=== PATIENT | male | born 1945 | race Caucasian/White ===

== ENCOUNTER 2016-04-10 06:31 | Outpatient (CLI) | payer MEDICARE, BC ==
[~2016-04-10] VITALS: Ht 175.3 cm; Wt 136.4 kg
--- NOTE | ~2016-04-10 | HEMODYNAMI ---
PATIENT:MARYJANE VELASQUEZ V MEDICAL RECORD: [id number] : 43 LOCATION:DVADIM ADMISSION DATE: 04/10/16 Generatedon:04/10/20169:36 Patient name: MARYJANE VELASQUEZ Patient #: [id number] SSN: : 1945 Date of study: 04/10/2016 Page: Of Hemodynamic Procedure Report Patient Data Patient Demographics Procedure consent was obtained First Name: MARYJANE Gender: Male Last Name: EVA : 1945 [facility] Initial: V Age: 71 year(s) Patient #: [id number] Race: Unknown Additional ID: [id number] Contact details [address]: [address] [place] [address] [place] State: [place] City: [place] Zip code: [address] Admission Admission Data Admission Date: 04/10/2016 Admission Time: 6:31 Arrival Date: 04/10/2016 Arrival Time: 8:30 Admit Source: Other Insurance Payor: Medicare Height (in.): 69 BSA: 2.45 (m2) Height (cm.): 175.26 BMI: 44.3 (kg/m2) Weight (lbs.): 300 Weight (kg.): 136.08 Lab Results Lab Result Date: 04/10/2016 Lab Result Time: 0:00 Biochemistry Name Units Result Min Max BUN mg/dl 19 --(----)*- 7 18 Creatinine mg/dl 0.6 --(*---)-- 0.6 1.3 CBC Name Units Result Min Max Hemoglobin g/dl 14 --(*---)-- 13.5 17.5 Procedure Procedure Types Cath Procedure Diagnostic Procedure LHC [facility] w/Coronaries Miscellaneous Procedures Moderate Sedation up to 30 minutes Procedure Description Procedure Date Procedure Date: 04/10/2016 Procedure Start Time: 9:19 Procedure End Time: 9:32 Procedure Staff Name Function Mark Rolon MD Performing Physician Staci Meyers RT Scrub Anson Bergman RN Nurse Nhi Salomon RT Monitor Procedure Data Cath Procedure Fluoroscopy Diagnostic fluoroscopy Total fluoroscopy Time: 2.5 time: 2.5 min min Diagnostic fluoroscopy Total fluoroscopy dose: 919 dose: 919 mGy mGy Contrast Material Contrast Material Type Amount (ml) Isovue 370 73 Entry Location Entry Primary Successful Side Size Upsize Upsize Entry Closure Gallegos ccessful Closure Location (Fr) 1 (Fr) 2 (Fr) Remarks Device Remarks Radial Right 6 Fr Mechanical artery Short Compression Estimated blood loss: 5 ml Diagnostic catheters Device Type Used For End Catheter Placement Cordis RBL-A catheter (NO Multi-vessel CHARGE) Angiography Procedure Complications No complications Procedure Medications Medication Administration Route Dosage Oxygen NC 2 l/min Benadryl I.V. 50 mg Lidocaine 2% added to field 20 Heparin Flush Bag added to field 2 bags (1000units/500ml NS) 0.9% NaCl I.V. 100 ml/hr Versed I.V. 1 mg Fentanyl I.V. 50 mcg Radial Cocktail I.A. 1 syringe (Verapomil 2mg/Nitro 400mcg/Heparin 1500units) Versed I.V. 1 mg Fentanyl I.V. 50 mcg Hemodynamics Rest BSA: 2.45 (m2) HGB: 14 (g/dl) O2 Consumption: Estimated: 276.04 (ml/min) O2 Cons umption indexed: Estimated:112.67 (ml/min/m) Heart Rate: 63 (bpm) Pressure Samples Time Site Value (mmHg) Purpose Heart Use Rate(bpm) 9:22 LV 135/3,22 Snapshot 71 9:22 AO 118/73(90) Pullback 69 9:22 LV 130/4,20 Pullback 69 Gradients Valve Time Site 1 Site 2 Mean SEP/DFP Peak To Heart Use (mmHg) (sec/min) Peak Rate (mmHg) (bpm) Aortic 9:22 LV AO 3 18 12 69 130/4,20 118/73(90) Calculations Valve P-P Mean Valve Index Valve Source Name Gradient Area Flow (cm2) Aortic 12 3 12 3 Snapshots Pre Cath Intra NCS Post Cath Vital Signs Time Heart Resp SPO2 NIBP (mmHg) Rhythm Pain Sedation Rate (ipm) (%) Status Level (bpm) 8:57:44 60 16 94 171/99(148) NSR 0 (11) 10(A) , No pain 9:02:14 58 15 96 181/104(148) NSR 0 (11) 10(A) , No pain 9:06:47 67 17 95 171/94(130) NSR 0 (11) 10(A) , No pain 9:11:17 65 16 92 167/95(115) NSR 0 (11) 10(A) , No pain 9:15:37 65 17 95 159/89(129) NSR 0 (11) 10(A) , No pain 9:20:02 63 16 94 162/93(132) NSR 0 (11) 9(A) , No pain 9:24:24 67 15 93 155/79(115) NSR 0 (11) 9(A) , No pain 9:28:50 66 16 96 142/81(105) NSR 0 (11) 10(A) , No pain Medications Time Medication Route Dose Verified Delivered Reason Notes E ffectiveness by by 8:55:34 Oxygen NC 2 l/min Mark Buffie used for Gonzales Bergman RN procedure 8:55:42 Benadryl I.V. 50 mg Mark Buffie used for from Gonzales Bergman RN procedure clh stock 8:57:45 Lidocaine 2% added 20ml Mark Mark for local to vial Gonzales Rolon MD anesthetic field 8:57:49 Heparin Flush added 2 bags Mark Mark used for Bag to Gonzales Rolon MD procedure (1000units/500ml field NS) 8:58:00 0.9% NaCl I.V. 100 Mark Buffie Per ml/hr Gonzales Bergman RN physician 9:17:24 Versed I.V. 1 mg Mark Buffie for sedation Gonzales Bergman RN 9:17:31 Fentanyl I.V. 50 mcg Mark Buffie for sedation Gonzales Bergman RN 9:21:11 Radial Cocktail I.A. 1 Mark Buffie for (Verapomil syringe Gonzales Bergman RN vasodilation 2mg/Nitro 400mcg/Heparin 1500units) 9:21:16 Versed I.V. 1 mg Mark Buffie for sedation Gonzales Bergman RN 9:21:20 Fentanyl I.V. 50 mcg Mark Buffie for sedation Gonzales Bergman RN Procedure Log Time Note 8:33:08 Staci Counts RT(R) sent for patient. Start room use. 8:33:09 Time tracking: Regular hours 8:33:13 Plan of Care:Hemodynamics will remain stable., Cardiac rhythm will remain stable., Comfort level will be maintained., Respiratory function will remain adequate., Patient/ family verbilizes understanding of procedure., Procedure tolerated without complication., Recovers from procedure without complications.. 8:38:13 Diagnostic Cath Status : Elective 8:38:50 Admit Source: Other 8:38:53 Patient Height : 175.26 inches 8:38:57 Patient Weight : 136.08 lbs 8:39:05 Arrival Date: 04/10/2016 8:30:00 AM 8:39:11 Insurance Payor : Medicare 8:41:25 Lab Result : BUN 19 mg/dl 8:41:25 Lab Result : Hemoglobin 14 g/dl 8:41:25 Lab Result : Creatinine 0.6 mg/dl 8:47:26 Patient received from Pre/Post Procedure Room to [facility] 2 Alert and oriented. Tansferred to table in Supine position. 8:47:27 Warm blankets applied, and rachelle hugger turned on for patient comfort. 8:47:28 Correct patient and procedure confirmed by team. 8:47:29 Signed procedure consent form obtained from patient. 8:47:30 ECG and BP/O2 sat monitors applied to patient. 8:55:34 Oxygen 2 l/min NC was given by Anson Bergman RN; used for procedure; 8:55:42 Benadryl 50 mg I.V. was given by Anson Bergman RN; used for procedure; from [facility] 8:56:31 Vital chart was started 8:56:32 Baseline sample Acquired. 8:56:35 Rhythm: sinus rhythm 8:56:37 Full Disclosure recording started 8:56:54 H&P Date Dictated: 03/25/2016 Within 30 days and on chart., H&P Addendum completed by physician on day of procedure. (MUST COMPLETE FOR ALL OUTPATIENTS). 8:56:55 Pre-procedure instructions explained to patient. 8:56:56 Pre-op teaching completed and patient verbalized understanding. 8:56:57 Family in waiting room. 8:57:00 Patient NPO since Midnight. 8:57:45 Lidocaine 2% 20ml vial added to field was given by Mark Rolon MD; for local anesthetic; 8:57:49 Heparin Flush Bag (1000units/500ml NS) 2 bags added to field was given by Mark Rolon MD; used for procedure; 8:58:00 0.9% NaCl 100 ml/hr I.V. was given by Anson Bergman RN; Per physician; 8:58:43 Is the patient allergic to Iodine/contrast media? No. 8:58:44 Was the patient premedicated? No 8:58:50 Is patient on blood thinner?No 8:58:54 Patient diabetic? No. 8:58:57 Previous problem with sedation/anesthesia? No ? 8:58:59 Snore? Yes 8:59:00 Sleep apnea? Yes 8:59:00 Deviated septum? No 8:59:01 Opens mouth fully? Yes 8:59:02 Sticks out tongue? Yes 8:59:06 Airway obstruction? No ? 8:59:10 Dentures? No ? 8:59:13 Pre procedure: right dorsailis pedis pulse 1+ Palpable, but thready & weak; easily obliterated 8:59:15 Patient pain scale 0/10 ?. 8:59:21 IV patent on arrival in left forearm with 0.9% NaCl at [facility]. 8:59:35 Lab results completed and on chart. 8:59:39 Right Radial & Right Groin area was prepped with chlora-prep and draped in sterile fashion 8:59:39 Alarms reviewed by R. N. 8:59:40 Sharps counted by scrub and verified by R.N. 9:00:30 Physician arrived 9:00:30 --------ALL STOP TIME OUT------ 9:00:31 Final Timeout: patient, procedure, and site verified with staff and physician. All members of the team are in agreement. 9:00:32 Right Radial & Right Groin site verified by team. 9:00:35 Physical assessment completed. ASA score P 2 - A patient with mild systemic disease as per Mark Rolon MD. 9:00:39 Sedation plan: IV Moderate Sedation Versed, Fentanyl 9:00:42 Use device set Radial Dx 9:00:43 Acist Syringe opened to sterile field. 9:00:44 Medline Cath Pack opened to sterile field. 9:00:44 Bag Decanter opened to sterile field. 9:00:44 Terumo 6Fr Slender Glidesheath opened to sterile field. 9:00:45 St Lucio 260cm J .035 wire opened to sterile field. 9:00:45 Acist Hand Control opened to sterile field. 9:00:45 Acist Manifold opened to sterile field. 9:00:46 Tegaderm 4 x 4 opened to sterile field. 9:04:43 Zero performed for pressure channel P1 9:17:24 Versed 1 mg I.V. was given by Anson Bergman RN; for sedation; 9:17:31 Fentanyl 50 mcg I.V. was given by Anson Bergman RN; for sedation; 9:18:55 Procedure started. 9:19:03 Local anesthetic to right radial artery with Lidocaine 2% by Mark Rolon MD.INITIAL ACCESS ONLY 9:20:33 A 6 Fr Short sheath was inserted into the Right Radial artery 9:21:11 Radial Cocktail (Verapomil 2mg/Nitro 400mcg/Heparin 1500units) 1 syringe I.A. was given by Anson Bergman RN; for vasodilation; 9:21:16 Versed 1 mg I.V. was given by Anson Bergman RN; for sedation; 9:21:18 A [employer] Solutions RBL-A catheter (NO CHARGE) was advanced over the wire and used for Multi-vessel Angiography. 9:21:20 Fentanyl 50 mcg I.V. was given by Anson Bergman RN; for sedation; 9:22:11 LV hemodynamics recorded. 9:22:12 LV gram done using ORTA 9:22:20 Injector settings: Ml/sec: 5, Volume: 15, 9:22:35 EF : 40 % 9:23:47 LCA angiography performed. 9:23:50 Injector settings: Ml/sec: 3, Volume: 6, 9:25:21 RCA angiography performed. 9:25:52 Injector settings: Ml/sec: 3, Volume: 6, 9:29:56 Catheter removed. 9:30:03 Terumo TR Band Large opened to sterile field. 9:30:22 Sheath removed intact; hemostasis achieved with Mechanical Compression to the Right Radial artery. 9:30:24 Procedure ended.(Physican Out) 9:30:57 Fluoroscopy time 02.50 minutes. 9:31:05 Flurop Dose total: 919 9:31:05 Fluoroscopy dose: 919 mGy 9:31:08 Contrast amount:Isovue 370 73ml. 9:31:10 Sharps counted by scrub and verified by R.N. 9:31:13 TR band inflated with 11cc of air. 9:31:22 Insertion/operative site no bleeding no hematoma. 9:31:26 Post right radial artery:stable 9:31:28 Post Procedure Pulses reassessed and unchanged 9:31:30 Post procedure rhythm: unchanged. 9:31:33 Estimated blood loss: 5 ml 9:31:35 Post procedure instruction explained to patient.Patient verbalizes understanding. 9:31:35 Patient needs reinforcement of post procedure teaching. 9:31:41 Procedure and supply charges have been captured, reviewed, submitted and are correct. 9:31:49 Procedure type changed to Cath procedure, Diagnostic procedure, LHC, LHC w/Coronaries, Miscellaneous Procedures, Moderate Sedation up to 30 minutes 9:31:54 Procedure Complication : No complications 9:32:02 Vital chart was stopped 9:32:03 See physician's report for complete and final results. 9:32:05 Report given to Pre/Post Procedure Room. 9:32:08 Patient transfered to Pre/Post Procedure Room with Stretcher. 9:32:10 Procedure ended. 9:32:10 Full Disclosure recording stopped 9:32:43 End room use (Document Last) Device Usage Item Name Manufacture Quantity Catalog Hospital Part Current Minimal Lot# / Number Charge Number Stock Stock Serial# Code Acist Acist 1 70051 049941 949510 423468 20 Syringe Medical Systems Inc Medline Cardinal 1 [id number] [id number] 17921 879500 5 Cath Pack Health Bag Microtek 1 [id number] 56158 042110 5 Decanter Medical Inc. Terumo 6Fr Terumo 1 [id number] 176250 200611 502592 [address] [facility] 1 992556 973571 947293 441569 30 260cm J .035 wire Acist Hand Acist 1 33542 595823 634932 758463 5 Control Medical Systems Inc Acist Acist 1 41362 392677 786785 769095 5 Manifold Medical Systems Inc Tegaderm 4 3M 1 1626W 588945 270457 390957 5 x 4 Cordis Cardinal 1 [id number] 507097 5 RBL-A Health catheter (NO CHARGE) Terumo TR Terumo 1 [id number] 970101 263946 40 Band Large Signature Audit [place] Stage Time Signature Unsigned Intra-Procedure 04/10/2016 Nhi Salomon 9:36:06 AM RT(R) Signatures Monitor : Nhi Salomon RT Signature : Date : Time : [place] [id number] [place] [id number]
[~2016-04-10 06:31] MED LIST: BAYER CHEWABLE81 MG PO; CARAFATE1 G PO; CARDURA2 MG PO; FENOFIBRATE134 MG PO; FISH OIL 1,2001 CAP PO; FLECAINIDE ACET50 MG PO; GLUCOSAMINE HC500 MG PO; JANUVIA50 MG PO; KLOR-CON 1010 MEQ PO; NIASPAN750 MG PO; ZEBETA5 MG PO
[2016-04-10] MEDS ORDERED: NIASPAN750 MG PO (06:58)
[2016-04-10] MEDS ORDERED: CARDURA2 MG PO (07:01)
[2016-04-10] MEDS ORDERED: PRAVACHOL40 MG PO (07:02)
[2016-04-10] MEDS ORDERED: PROTONIX40 MG PO (07:03)
[2016-04-10] MEDS ORDERED: BAYER CHEWABLE81 MG PO (07:03)
[2016-04-10] MEDS ORDERED: GLUCOSAMINE & C1 CAP PO (07:04)
[2016-04-10] MEDS ORDERED: OMEGA 3 FISH OI1 CAP PO (07:04)
[2016-04-10 07:06] VITALS: BP 144/70; Ht 175.3 cm; Wt 136.4 kg
[2016-04-10 07:11] LABS: BASOPHILS 0.5 % (0.0-2.0); EOSINOPHILS 3.2 % (0-7); HEMATOCRIT 42.6 % (42.0-54.0); IMMATURE GRANULOCYTES 0.5 % (0-5); LYMPHOCYTES 23.7 % (15-50); MCH 29.8 pg (26.0-34.0); MCHC 32.9 g/dL (31.0-37.0); MCV 90.6 fL (80.0-100.0); MEAN PLATELET VOLUME 11.7 fL (7.4-10.4); MONOCYTES 10.3 % (2-11); NEUTROPHILS 61.8 % (40-80); PLATELET COUNT 131 10x3/uL (130-400); RDW 14.1 % (11.5-14.5); WBC 4.4 10x3/uL (4.8-10.8)
[2016-04-10 07:28] LABS: CALC OSMOLALITY 288 mosm/kg (275-300); CALCIUM 9.4 mg/dL (8.5-10.1); CARBON DIOXIDE 30.7 mmol/L (21.0-32.0); CHLORIDE - SERUM 106 mmol/L (98-107); CREATININE - SERUM 0.6 mg/dL (0.6-1.3); GLUCOSE 141 mg/dL (74-106); SODIUM 143 mmol/L (136-145); UREA NITROGEN 19 mg/dL (7-18); eGFR NON AFRICAN AMERICAN > 90 mL/min (90-120)
--- NOTE | 2016-04-10 10:03 | NUR ---
TR BAND TO R/WRIST CDI NO BLEEDING NO HEMATOMA NOTED. VSS WITH CHEST PAIN DENIED. INSTRUCTED PATIENT TO KEEP RUE STRAIGHT NO BENDING OR FLEXING OF WRIST. FAMILY AT SIDE
--- NOTE | 2016-04-10 10:30 | NUR ---
1030 PATIENT VOIDS 400 CC CLEAR YELLOW URINE TO COLLECTION
--- NOTE | 2016-04-10 11:00 | NUR ---
1100 REPOSITIONED TO SITTING WITH HOB UP 45 DEGREES WITH CHEST PAIN DENIED VSS 2 CC AIR REMOVED FROM TR BAND WITH NO BLEEDING NO HEMATOMA NOTED. SANDWICH AND DRINK TO BEDSIDE
--- NOTE | 2016-04-10 11:33 | NUR ---
PIV REMOVED FROM LEFT ARM WITH DRESSING APPLIED 2 CC AIR REMOVED FROM TR BAND WITH NO BLEEDING NO HEMATOMA NOTED. PATIENT UP TO BEDSIDE TO GET DRESSED FOR DISCHARGE
--- NOTE | 2016-04-10 11:49 | NUR ---
TR BAND REMOVED WITH NO BLEEDING NO HEMATOMA NOTED. DRESSING APPLIED. DISCHARGE INSTRUCTIONS GONE OVER WITH PATIENT AND FAMILY LEFT VIA WC FOR FAMILY TO DRIVE HOME CHEST PAIN DENIED
--- NOTE | 2016-04-29 08:17 | OP ---
PATIENT NAME: MARYJANE VELASQUEZ V MEDICAL RECORD: [id number] :43 LOCATION:D.CAT ADMISSION DATE: SURGEON: TUAN JACKSON M.D. DATE OF OPERATION: 04/10/2016 REFERRING PHYSICIAN: Dr. Tuan Jennings. PROCEDURES PERFORMED: 1. Selective coronary angiography. 2. Left heart catheterization with ventriculogram. INDICATION: A 71-year-old gentleman presents with symptoms of dyspnea and abnormal stress test revealing inferior ischemia. EQUIPMENT USED: A 5-Sammarinese Victorino catheter. TECHNIQUE: A 6-Sammarinese sheath was inserted in retrograde fashion in the right radial artery. Next, selective coronary angiography was performed in standard 5-Sammarinese Victorino catheter. Left heart catheterization was performed using the Victorino catheter as well. CORONARY ANATOMY: 1. Left main: Left main trunk is moderate in caliber. It gives rise to the LAD and circumflex. It has no obstruction. 2. LAD: This is a large caliber vessel extending to the apex. The proximal vessel has mild irregularities, but nothing worse than 20%. 3. Circumflex: This vessel is moderate in caliber. It has a high lateral branch proximal segment. The continuation of the circumflex has a smooth 40% stenosis. 4. Right coronary: This vessel is large in caliber and dominant. The vessel is mildly calcified. There are mild irregularities throughout the vessel, but nothing worse than 30%. 5. Left ventricle: Left ventricle is normal in size. There is mild LV dysfunction noted. Estimated ejection is in the order of 45%. IMPRESSION: 1. Mild coronary artery disease. 2. Mild left ventricular dysfunction. PLAN: At this point, we will continue with medical management. TRANSINT:[id number] Voice Confirmation ID: [id number] DOCUMENT ID: [id number] TUAN JACKSON M.D. at 0817 CC: [id number] DICTATION DATE: 04/10/16 0935 EMERGENCY DOCTOR: 04/10/16 1729 DEP CLI 04/10/16 [place] [id number] [place] [address]
== END 2016-04-10 11:51 | disposition home or self-care (01) ==
LOC: D.CATH 06:31
PROVIDERS: Internal Medicine Cardiovascular Disease
DX: I25.10 Atherosclerotic heart disease of native coronary artery without angina pectoris (principal); I51.9 Heart disease, unspecified

== ENCOUNTER → 2016-05-26 07:35 | Outpatient (CLI) | payer MEDICARE, BC ==
[2016-04-10 07:06] VITALS: BMI 44.4
[~2016-05-26 07:35] MED LIST changes: +GLUCOSAMINE & C1 CAP PO; +OMEGA 3 FISH OI1 CAP PO; +PRAVACHOL40 MG PO; +PROTONIX40 MG PO
== END | disposition home or self-care (01) ==
LOC: D.NM 07:35
DX: K21.9 Gastro-esophageal reflux disease without esophagitis (principal)

== ENCOUNTER → 2016-10-08 13:19 | Outpatient (CLI) | payer MEDICARE, BC ==
[2016-04-10 07:06] VITALS: BMI 44.4
== END | disposition home or self-care (01) ==
LOC: D.CT 13:19
DX: K42.9 Umbilical hernia without obstruction or gangrene (principal)

== ENCOUNTER 2016-12-12 11:32 | Emergency (ER) | payer MEDICARE, BC ==
[2016-04-10 07:06] VITALS: BMI 44.4
== END 2016-12-12 16:30 | disposition home or self-care (01) ==
LOC: D.ER 11:32
DX: S61.412A Laceration without foreign body of left hand, initial encounter (principal); W29.8XXA Contact with other powered hand tools and household machinery, initial encounter; Y93.89 Activity, other specified; Y92.029 Unspecified place in mobile home as the place of occurrence of the external cause

== ENCOUNTER → 2017-07-30 07:38 | Outpatient (CLI) | payer MEDICARE, BC ==
[2016-04-10 07:06] VITALS: BMI 44.4
== END | disposition home or self-care (01) ==
LOC: D.RAD 07:38
DX: K21.9 Gastro-esophageal reflux disease without esophagitis (principal)

== ENCOUNTER 2017-09-01 11:18 | Outpatient (CLI) | payer MEDICARE, BC ==
[2016-04-10 07:06] VITALS: BMI 44.4
== END 2017-09-01 13:10 ==
LOC: D.OPS 11:18
DX: E11.43 Type 2 diabetes mellitus with diabetic autonomic (poly)neuropathy (principal); Z01.812 Encounter for preprocedural laboratory examination

== ENCOUNTER → 2018-03-16 13:18 | Outpatient (CLI) | payer MEDICARE, BC ==
[2016-04-10 07:06] VITALS: BMI 44.4
[~2018-03-16 13:18] MED LIST changes: +ASACOL HD800 MG PO; +Delzicol PO; +FLAGYL500 MG PO; +FUROSEMIDE20 MG PO; +GLUCOTROL XL 5 M5 MG PO; +LEVOFLOXACIN500 MG PO; +METFORMIN HCL500 M1 PO; +SYNTHROID25 MCG PO
== END | disposition home or self-care (01) ==
LOC: D.LAB 12:43
DX: R19.7 Diarrhea, unspecified (principal)

== ENCOUNTER 2018-03-18 10:39 | Inpatient (IN) | payer MEDICARE, BC ==
[~2018-03-18] VITALS: Ht 175.3 cm; Wt 129.3 kg
[~2018-03-18 10:39] MED LIST changes: -ASACOL HD800 MG PO; -Delzicol PO; -FLAGYL500 MG PO; -FUROSEMIDE20 MG PO; -GLUCOTROL XL 5 M5 MG PO; -LEVOFLOXACIN500 MG PO; -METFORMIN HCL500 M1 PO; -SYNTHROID25 MCG PO
[2018-03-18 11:52] LABS: ALBUMIN 1.6 g/dL (3.4-5.0); ALKALINE PHOSPHATASE 37 U/L (46-116); ALT (SGPT) 20 U/L (10-68); CALC OSMOLALITY 273 mosm/kg (275-300); CALCIUM 7.7 mg/dL (8.5-10.1); CARBON DIOXIDE 25.8 mmol/L (21.0-32.0); CHLORIDE - SERUM 98 mmol/L (98-107); CREATININE - SERUM 0.7 mg/dL (0.6-1.3); PROTEIN - SERUM 5.4 g/dL (6.4-8.2); SODIUM 134 mmol/L (136-145); UREA NITROGEN 11 mg/dL (7-18); eGFR NON AFRICAN AMERICAN > 90 mL/min (90-120)
[2018-03-18 11:57] LABS: GLUCOSE 228 mg/dL (74-106)
[2018-03-18 12:02] LABS: HEMATOCRIT 31.7 % (42.0-54.0); HEMOGLOBIN 10.6 g/dL (13.5-17.5); LYMPHOCYTES 6.6 % (15-50); MCH 27.3 pg (26.0-34.0); MCHC 33.4 g/dL (31.0-37.0); MCV 81.7 fL (80.0-100.0); MEAN PLATELET VOLUME 8.9 fL (7.4-10.4); NEUTROPHILS 84.9 % (40-80); RBC 3.88 10x6/uL (4.20-6.10); RDW 13.2 % (11.5-14.5); WBC 7.1 10x3/uL (4.8-10.8)
[2018-03-18 12:03] LABS: PLATELET COUNT 223 10x3/uL (130-400)
[2018-03-18 12:08] VITALS: BP 145/66
[2018-03-18 14:57] VITALS: BP 145/66; BMI 41.6
[2018-03-18 15:08] LABS: APPEARANCE CLEAR (CLEAR); COLOR YELLOW (YELLOW)
[2018-03-18 15:09] LABS: BILIRUBIN NEGATIVE (NEGATIVE); GLUCOSE 100 mg/dL (NEGATIVE); KETONE NEGATIVE (NEGATIVE); NITRITE NEGATIVE (NEGATIVE); PROTEIN NEGATIVE (NEGATIVE); SPECIFIC GRAVITY 1.015 (1.005-1.020); UROBILINOGEN NORMAL (NORMAL)
[2018-03-18 16:07] VITALS: BP 130/62
[2018-03-18 20:00] VITALS: BP 133/52
[2018-03-19 00:10] VITALS: BP 116/57
[2018-03-19 03:58] VITALS: BP 111/51
[2018-03-19 06:34] LABS: BASOPHILS 0.2 % (0-2); HEMATOCRIT 31.5 % (42.0-54.0); HEMOGLOBIN 10.1 g/dL (13.5-17.5); LYMPHOCYTES 12.3 % (15-50); MCH 26.4 pg (26.0-34.0); MCHC 32.1 g/dL (31.0-37.0); MCV 82.5 fL (80.0-100.0); MEAN PLATELET VOLUME 9.2 fL (7.4-10.4); MONOCYTES 7.9 % (2-11); NEUTROPHILS 77.6 % (40-80); PLATELET COUNT 211 10x3/uL (130-400); RBC 3.82 10x6/uL (4.20-6.10)
[2018-03-19 06:49] LABS: CALCIUM 7.6 mg/dL (8.5-10.1); CARBON DIOXIDE 26.5 mmol/L (21.0-32.0); CHLORIDE - SERUM 106 mmol/L (98-107); POTASSIUM - SERUM 3.6 mmol/L (3.5-5.1); SODIUM 141 mmol/L (136-145)
[2018-03-19 06:58] LABS: WBC 4.8 10x3/uL (4.8-10.8)
[2018-03-19 07:22] LABS: CALC OSMOLALITY 278 mosm/kg (275-300); CREATININE - SERUM 0.5 mg/dL (0.6-1.3); GLUCOSE 95 mg/dL (74-106); UREA NITROGEN 7 mg/dL (7-18); eGFR NON AFRICAN AMERICAN > 90 mL/min (90-120)
[2018-03-19 08:23] VITALS: BP 121/59
[2018-03-19 10:41] VITALS: Ht 175.3 cm; Wt 129.3 kg
[2018-03-19 13:17] VITALS: BP 119/62
--- NOTE | 2018-03-19 13:56 | HP ---
PATIENT: MARYJANE VELASQUEZ V MEDICAL RECORD: [id number] ACCOUNT: [id number] LOCATION:[address] : 43 ADMISSION DATE: 03/18/18 PCP: CATHI MARVIN MD HISTORY AND PHYSICAL EXAMINATION REASON FOR ADMISSION: Intractable diarrhea. HISTORY OF PRESENT ILLNESS: The patient is a 73-year-old male, type 2 diabetic, who is post-cholecystectomy several years ago. He said he has never had dumping syndrome, but about a month ago, began having some loose stools. He went on a [place] cruise, and after that, it seemed to be more prominent. He would have 6-8 stools a day. Over the last 2 weeks, it has increased to 10-14 stools per day. He has had some mild abdominal cramping. He presented to the office with this about 2 weeks ago. We stopped metformin and his PPI to see if that would improve him at all. We also scheduled him for outpatient stool studies. He has been taking Gatorade, but said he has not improved; and in the last 2 days, he has had 14 stools a day. There has been no blood in the stool or fever. He has had about a 15-pound weight loss over the last month. Stool studies outpatient did show fecal leukocytes positive, culture negative thus far, C. diff negative, and O&P negative. He called this morning saying he just could not keep up with fluid, is now being admitted for evaluation of his diarrhea, IV fluid, and replacement of his low potassium. PAST MEDICAL HISTORY: Type 2 diabetes mellitus, history of gout, morbid obesity, hyperlipidemia, hypertension, osteoarthritis, prostatitis, GERD, and rosacea. He had cardiac cath in 2017 that showed 30% to 40% minimal stenosis in the circumflex and right coronary artery, treated medically by Dr. Rolon. Also history of diverticulosis per colonoscopy. History of gastroparesis, thought due to diabetes, followed by Dr. ESTELA Galvan. History of paroxysmal atrial fibrillation. PAST SURGICAL HISTORY: Appendectomy and cholecystectomy. He had a Proscan prostate laser surgery. Rotator cuff repair. SOCIAL HISTORY: . Remote smoker. Nondrinker. FAMILY HISTORY: Parents are . Mother had malignant tumor of the lung. Father had malignant tumor of the testicle. One brother with esophageal cancer and sister with lung malignancy. HOME MEDICATIONS: Recently stopped Glucotrol, metformin, and pantoprazole due to diarrhea. Zebeta 5 mg a day, Cardura 2 mg at night, fenofibrate 124 mg p.o. daily, fish oil one t.i.d., Tambocor 50 mg p.o. b.i.d., niacin ER 750 mg at bedtime, pravastatin 40 mg daily, aspirin 81 mg daily, Carafate 1 gram p.o. t.i.d., pantoprazole 40 mg p.o. daily, and glucosamine/chondroitin one cap p.o. b.i.d. REVIEW OF SYSTEMS: GENERAL: Fatigued. He has mentioned 15-pound weight loss. No fever. HEENT: No recent visual change, sinus congestion, or sore throat. RESPIRATORY: No severe cough. CARDIAC: No exertional chest pain or claudication. He has chronic peripheral edema in his lower extremities, not worse than previous. Denies palpitations. ENDOCRINE: Denies polyuria, polydipsia, heat or cold intolerance. HISTORY AND PHYSICAL [id number] MARYJANE VELASQUEZ V NEUROLOGIC: No history of stroke, TIA, vascular headaches, or seizures. PSYCHIATRIC: Denies depressed mood. GENITOURINARY: Nocturia once to twice nightly. GASTROINTESTINAL: He has had multiple loose small volume stools for the last month, worse over the last 48 hours with 14 stools per day. No melena or bright red blood per rectum. He does have some rectal tenderness. PHYSICAL EXAMINATION: VITAL SIGNS: His temperature is 97.9, pulse 78 and regular, respirations are 20, and blood pressure is 148/66 with sat of 93% on room air. GENERAL: The patient is alert and oriented. HEENT: Eyes are clear. Oropharynx unremarkable. NECK: Supple without bruits or masses. CHEST: Clear with distant breath sounds. HEART: Regular rate and rhythm without murmur. ABDOMEN: Morbidly obese. Soft. Healed surgical scar noted in midline. He is somewhat hypertympanic with hyperactive bowel sounds. Minimally tender in the suprapubic area bilaterally. RECTAL: Deferred due to hemorrhoid issues. EXTREMITIES: 2+ bitibial and pretibial edema. Homans sign is negative. He is oriented to person, place, and time. Cranial nerves are grossly intact. Gait normal. INTEGUMENT: He has facial rosacea rash. Otherwise, no open lesions are noted. LABORATORY DATA: White count 7000 with left shift, H&H is 10.6 and 31.7 respectively. Chemistry reveals sodium 134, potassium 3.0, and blood sugar is 228. Liver functions are normal. Urinalysis is pending. DIAGNOSTIC DATA: Abdominal series is pending. Outpatient stool shows fecal leukocytes positive. Negative O&P. Negative C. diff. ASSESSMENT: 1. Diarrhea, severe, with fecal leukocyte positive. 2. Recent foreign travel. 3. Hypokalemia due to GI losses. 4. History of atrial fibrillation. 5. Minimal CAD in circumflex and RCA. 6. Hypertension. 7. Obesity. 8. AODM. PLAN: Continue to hold metformin and pantoprazole. Due to fecal leukocytes, we will await on cultures to return, but we will place on IV Levaquin and Flagyl, potassium replacement. Further workup pending clinical course, which has been discussed with the patient and his . TRANSINT:[id number] Voice Confirmation ID: [id number] DOCUMENT ID: [id number] HISTORY AND PHYSICAL [id number] MARYJANE VELASQUEZ TIMOTHY MD at 1356 CC: [id number] DICTATION DATE: 03/18/18 1326 EMPLOYMENT LAW ATTORNEY: 03/18/18 1507 ADM IN [place] [id number] [place] [id number]
--- NOTE | 2018-03-19 14:44 | MORECARE ---
CASE MANAGEMENT DISCHARGE SUMMARY PATIENT: MARYJANE VELASQUEZ V UNIT: [id number] ADM DATE: 03/18/18 AGE: 73 : 43 SEX: M ROOM/BED: D.1208 AUTHOR: ROCKY WIGGINS PHYSICIAN: REFERRING PHYSICIAN: CATHI MARVIN MD DATE OF SERVICE: 03/19/18 Discharge Plan Patient Name: MARYJANE VELASQUEZ [facility] [facility] 1945 Planned Disposition: Anticipated Discharge Date: Discharge Date: Expected LOS: Initial Reviewer: [email or web address] Initial Review Date: 03/19/2018 Generated: 03/19/18 3:43 pm Patient Name: MARYJANE VELASQUEZ Page [phone] at 1444 All edits/amendments must be made on the electronic document DICTATION DATE: 03/19/18 1443 INDUSTRIAL STAFF NURSE: CAROLYN 03/19/18 1443 RPT#: [id number] DC DATE: STATUS: ADM IN [facility] [address] [place] [address] END OF REPORT
--- NOTE | 2018-03-19 14:54 | MORECARE ---
CASE MANAGEMENT DISCHARGE SUMMARY PATIENT: MARYJANE VELASQUEZ V UNIT: [id number] ADM DATE: 03/18/18 AGE: 73 : 43 SEX: M ROOM/BED: D.1208 AUTHOR: ROCKY WIGGINS PHYSICIAN: REFERRING PHYSICIAN: CATHI MARVIN MD DATE OF SERVICE: 03/19/18 Discharge Plan Patient Name: MARYJANE VELASQUEZ Facility: [facility]:[place] : 1945 Planned Disposition: Anticipated Discharge Date: Discharge Date: Expected LOS: Initial Reviewer: [email or web address] Initial Review Date: 03/19/2018 Generated: 03/19/18 3:54 pm Comments DCP- Discharge Planning Updated by [email or web address]: Dia Valdez on 03/19/18 1:[address] Patient Name: MARYJANE VELASQUEZ Admission Status: Elective Accout number: [id number] Admission Date: 03-18-2018 : 1945 Admission Diagnosis: Attending: CATHI MARVIN Current LOS: 1 Anticipated DC Date: Planned Disposition: Primary Insurance: MEDICARE A & B Discharge Planning Comments: CM MET WITH PATIENT ABOUT DC PLANNING/NEEDS. PLANS TO DC TO HOME WITH . DENIES NEEDS AT THIS TIME. CM WILL FOLLOW AND ASSIST NEEDED WITH DC PLANNING/NEEDS. Supervisor Warping Department: Dia Valdez DCPIA - Discharge Planning Initial Assessment Updated by [email or web address]: Dia Valdez on 03/19/18 2:45 pm * Is the patient Alert and Oriented? Yes * PCP * Pharmacy [facility] * Preadmission Environment Home with Family * ADLs Independent * Equipment CPAP * List name and contact numbers for known caregivers / representatives who currently or will assist patient after discharge: CARRILLO RUGGIERO, * Community resources currently utilized None * Additional services required to return to the preadmission environment? No * Can the patient safely return to the preadmission environment? Yes * Has this patient been hospitalized within the prior 30 days at any hospital? No Last DP export: 03/19/18 1:43 pm Patient Name: MARYJANE VELASQUEZ Page [phone] at 1454 All edits/amendments must be made on the electronic document DICTATION DATE: 03/19/181453 AIRCRAFT MAINTENANCE DIRECTOR: CAROLYN 03/19/181453 RPT#: [id number] DC DATE: STATUS: ADM IN [facility] [address] [place] [address] END OF REPORT
[2018-03-19 16:54] VITALS: BP 100/41
[2018-03-19 20:10] VITALS: BP 142/52
[2018-03-20 00:54] VITALS: BP 151/60
[2018-03-20 05:03] VITALS: BP 122/53
[2018-03-20 06:48] LABS: BASOPHILS 0.2 % (0-2); EOSINOPHILS 0.5 % (0-7); HEMATOCRIT 32.1 % (42.0-54.0); HEMOGLOBIN 10.2 g/dL (13.5-17.5); IMMATURE GRANULOCYTES 0.8 % (0-5); LYMPHOCYTES 9.1 % (15-50); MCH 26.2 pg (26.0-34.0); MCHC 31.8 g/dL (31.0-37.0); MCV 82.5 fL (80.0-100.0); MONOCYTES 6.2 % (2-11); NEUTROPHILS 83.2 % (40-80); PLATELET COUNT 245 10x3/uL (130-400); RBC 3.89 10x6/uL (4.20-6.10); RDW 14.2 % (11.5-14.5)
[2018-03-20 07:03] LABS: INR 1.29 (0.85-1.17); PROTIME 15.6 SECONDS (11.6-15.0)
[2018-03-20 07:04] LABS: APTT 35.8 SECONDS (22.8-39.4); WBC 6.2 10x3/uL (4.8-10.8)
[2018-03-20 07:15] LABS: CALC OSMOLALITY 276 mosm/kg (275-300); CALCIUM 7.4 mg/dL (8.5-10.1); CARBON DIOXIDE 27.6 mmol/L (21.0-32.0); CHLORIDE - SERUM 105 mmol/L (98-107); CREATININE - SERUM 0.6 mg/dL (0.6-1.3); GLUCOSE 125 mg/dL (74-106); POTASSIUM - SERUM 3.5 mmol/L (3.5-5.1); SODIUM 139 mmol/L (136-145); UREA NITROGEN 7 mg/dL (7-18); eGFR NON AFRICAN AMERICAN > 90 mL/min (90-120)
[2018-03-20 07:17] LABS: % SATURATION 12 % (15-55); IRON 19 ug/dl (35-150); TOTAL IRON BIND CAPACITY 152 ug/dl (260-445); UNSAT IRON BIND CAPACITY 133 ug/dl (150-375)
[2018-03-20 07:35] LABS: T4 THYROXIN - FREE 1.39 ng/dL (0.76-1.46); THYROID STIMULATING HORMONE 2.25 uIU/mL (0.36-3.74)
[2018-03-20 09:21] VITALS: BP 129/60
[2018-03-20 16:45] VITALS: BP 120/58
[2018-03-20 20:00] VITALS: BP 113/41
[2018-03-20 23:53] VITALS: BP 108/42
[2018-03-21 05:52] LABS: BASOPHILS 0.2 % (0-2); HEMATOCRIT 32.5 % (42.0-54.0); HEMOGLOBIN 10.4 g/dL (13.5-17.5); LYMPHOCYTES 14.3 % (15-50); MCH 26.5 pg (26.0-34.0); MCV 82.9 fL (80.0-100.0); MEAN PLATELET VOLUME 9.1 fL (7.4-10.4); MONOCYTES 6.3 % (2-11); NEUTROPHILS 77.2 % (40-80); PLATELET COUNT 217 10x3/uL (130-400); RBC 3.92 10x6/uL (4.20-6.10); RDW 14.3 % (11.5-14.5)
[2018-03-21 06:02] LABS: CALC OSMOLALITY 276 mosm/kg (275-300); CALCIUM 7.3 mg/dL (8.5-10.1); CARBON DIOXIDE 25.6 mmol/L (21.0-32.0); CHLORIDE - SERUM 107 mmol/L (98-107); CREATININE - SERUM 0.5 mg/dL (0.6-1.3); GLUCOSE 119 mg/dL (74-106); POTASSIUM - SERUM 3.3 mmol/L (3.5-5.1); SODIUM 140 mmol/L (136-145); eGFR NON AFRICAN AMERICAN > 90 mL/min (90-120)
[2018-03-21 06:07] LABS: UREA NITROGEN 5 mg/dL (7-18)
[2018-03-21 08:29] VITALS: BP 138/66
[2018-03-21 12:00] VITALS: BP 110/65
[2018-03-21 16:00] VITALS: BP 125/64
[2018-03-21 19:55] VITALS: BP 125/60
[2018-03-21 23:41] VITALS: BP 130/70
[2018-03-22 03:46] VITALS: BP 121/67
[2018-03-22 07:56] VITALS: BP 122/69
[2018-03-22 12:52] VITALS: BP 120/54
[2018-03-22 15:44] VITALS: BP 126/68
[2018-03-22] MEDS ORDERED: SYNTHROID25 MCG PO (17:37)
[2018-03-22] MEDS ORDERED: GLUCOTROL XL 5 M5 MG PO (17:38)
[2018-03-22 21:00] VITALS: BP 127/53
[2018-03-23] VITALS: BP 126/53
[2018-03-23 05:04] VITALS: BP 128/72
[2018-03-23 06:29] LABS: CALC OSMOLALITY 280 mosm/kg (275-300); CALCIUM 7.5 mg/dL (8.5-10.1); CARBON DIOXIDE 28.4 mmol/L (21.0-32.0); CHLORIDE - SERUM 105 mmol/L (98-107); CREATININE - SERUM 0.6 mg/dL (0.6-1.3); GLUCOSE 111 mg/dL (74-106); POTASSIUM - SERUM 3.5 mmol/L (3.5-5.1); SODIUM 142 mmol/L (136-145); UREA NITROGEN 4 mg/dL (7-18); eGFR NON AFRICAN AMERICAN > 90 mL/min (90-120)
[2018-03-23] MEDS ORDERED: FLAGYL500 MG PO (07:39)
[2018-03-23] MEDS ORDERED: LEVOFLOXACIN500 MG PO (07:39)
[2018-03-23] MEDS ORDERED: ASACOL HD800 MG PO (07:41)
[2018-03-23] MEDS ORDERED: METFORMIN HCL500 M1 PO (07:41)
[2018-03-23] MEDS ORDERED: FUROSEMIDE20 MG PO (07:42)
[2018-03-23] MEDS ORDERED: Delzicol PO (07:43)
--- NOTE | 2018-03-23 14:40 | MORECARE ---
CASE MANAGEMENT DISCHARGE SUMMARY PATIENT: MARYJANE VELASQUEZ V UNIT: [id number] ADM DATE: 03/18/18 AGE: 73 : 43 SEX: M ROOM/BED: D.1208 AUTHOR: FELICIANODOC PHYSICIAN: REFERRING PHYSICIAN: CATHI MARVIN MD DATE OF SERVICE: 03/23/18 Discharge Plan Patient Name: MARYJANE VELASQUEZ Facility: [facility]:[place] : 1945 Planned Disposition: Home Anticipated Discharge Date: 03/23/18 Discharge Date: 03/23/2018 Expected LOS: 5 Initial Reviewer: [id number] Initial Review Date: 03/19/2018 Generated: 03/23/18 3:39 pm Comments DCP- Discharge Planning Updated by [email or web address]: Dia Valdez on 03/23/18 1:[address] Patient Name: MARYJANE VELASQUEZ Encounter No: [id number] : 1945 Primary Insurance: MEDICARE A & B Anticipated DC Date: 03-23-2018 Planned Disposition: Home External Planned Provider: : DCP follow-up note: Patient and family in agreement with discharge plan. No changes to plan. Case management will follow and assist as needed. Dia Valdez DCP- Discharge Planning Updated by [id number]: Dia Valdez on 03/19/18 1:[address] Patient Name: MARYJANE VELASQUEZ Admission Status: Elective Accout number: [id number] Admission Date: 03-18-2018 : 1945 Admission Diagnosis: Attending: CATHI MARVIN Current LOS: 1 Anticipated DC Date: Planned Disposition: Primary Insurance: MEDICARE A & B Discharge Planning Comments: CM MET WITH PATIENT ABOUT DC PLANNING/NEEDS. PLANS TO DC TO HOME WITH . DENIES NEEDS AT THIS TIME. CM WILL FOLLOW AND ASSIST NEEDED WITH DC PLANNING/NEEDS. Paper Hanger: Dia Valdez DCPIA - Discharge Planning Initial Assessment Updated by [email or web address]: Dia Valdez on 03/19/18 2:45 pm * Is the patient Alert and Oriented? Yes * PCP [place] * Pharmacy [facility] * Preadmission Environment Home with Family * ADLs Independent * Equipment CPAP * List name and contact numbers for known caregivers / representatives who currently or will assist patient after discharge: CARRILLO RUGGIERO, * Community resources currently utilized None * Additional services required to return to the preadmission environment? No * Can the patient safely return to the preadmission environment? Yes * Has this patient been hospitalized within the prior 30 days at any hospital? No Coverage Notice Reviewer: [id number] Den Valdez Notice Issued Date-Time: 03/22/2018 10:24 Notice Type: IM Discharge Notice Notice Delivered To: Patient Relationship to Patient: Self Shipping Weigher Name: Delivery Method: HAND - Hand Delivered Lorenza Days: Prior Verbal Notification: Recipient Understood Notice: Yes Recipient Signature: Yes Med Rec Note Co-signed by Attending: Coverage Notice Comment: Last DP export: 03/19/18 1:54 pm Patient Name: MARYJANE VELASQUEZ Page [id number] at 1440 All edits/amendments must be made on the electronic document DICTATION DATE: 03/23/181438 FIG BAR MACHINE OPERATOR: CAROLYN 03/23/18 143 RPT#: [id number] DC DATE:03/23/18 STATUS: DIS IN [facility] [address] [place] [address] END OF REPORT
== END 2018-03-23 10:53 | disposition home or self-care (01) | DRG 386 ==
LOC: D.M3 10:39
PROVIDERS: Internal Medicine Gastroenterology; ADMIT Family Medicine
PROC: 0DB68ZX Excision of Stomach, Via Natural or Artificial Opening Endoscopic, Diagnostic (ICD-10-PCS; 2018-03-20)
PROC: 0DBB8ZX Excision of Ileum, Via Natural or Artificial Opening Endoscopic, Diagnostic (ICD-10-PCS; 2018-03-20)
PROC: 0DBE8ZX Excision of Large Intestine, Via Natural or Artificial Opening Endoscopic, Diagnostic (ICD-10-PCS; 2018-03-20)
PROC: 0DB98ZX Excision of Duodenum, Via Natural or Artificial Opening Endoscopic, Diagnostic (ICD-10-PCS; principal; 2018-03-20 10:23)
DX: K51.90 Ulcerative colitis, unspecified, without complications (principal); Z68.41 Body mass index [BMI] 40.0-44.9, adult; A09 Infectious gastroenteritis and colitis, unspecified; I10 Essential (primary) hypertension; K21.9 Gastro-esophageal reflux disease without esophagitis; L71.9 Rosacea, unspecified; E11.43 Type 2 diabetes mellitus with diabetic autonomic (poly)neuropathy; K31.84 Gastroparesis; I48.0 Paroxysmal atrial fibrillation; E87.6 Hypokalemia; E66.01 Morbid (severe) obesity due to excess calories; K44.9 Diaphragmatic hernia without obstruction or gangrene; K29.40 Chronic atrophic gastritis without bleeding; D63.8 Anemia in other chronic diseases classified elsewhere

== ENCOUNTER → 2018-07-07 11:24 | Outpatient (CLI) | payer MEDICARE, BC ==
[2018-03-19 10:41] VITALS: BMI 41.5
[~2018-07-07 11:24] MED LIST changes: +ASACOL HD800 MG PO; +Delzicol PO; +FLAGYL500 MG PO; +FUROSEMIDE20 MG PO; +GLUCOTROL XL 5 M5 MG PO; +LEVOFLOXACIN500 MG PO; +METFORMIN HCL500 M1 PO; +SYNTHROID25 MCG PO
== END | disposition home or self-care (01) ==
LOC: D.HCCARDIO 11:24
PROVIDERS: ATTEND Internal Medicine Cardiovascular Disease
DX: I25.10 Atherosclerotic heart disease of native coronary artery without angina pectoris (principal)

== ENCOUNTER → 2019-01-13 11:35 | Outpatient (CLI) | payer MEDICARE, BC ==
[2018-03-19 10:41] VITALS: BMI 41.5
[2019-01-13 12:09] LABS: BASOPHILS 0.3 % (0-2); EOSINOPHILS 2.3 % (0-7); HEMATOCRIT 40.5 % (42.0-54.0); HEMOGLOBIN 12.8 g/dL (13.5-17.5); IMMATURE GRANULOCYTES 0.3 % (0-5); LYMPHOCYTES 23.7 % (15-50); MCH 26.7 pg (26.0-34.0); MCHC 31.6 g/dL (31.0-37.0); MCV 84.4 fL (80.0-100.0); MEAN PLATELET VOLUME 9.4 fL (7.4-10.4); MONOCYTES 6.9 % (2-11); NEUTROPHILS 66.5 % (40-80); RDW 14.8 % (11.5-14.5); WBC 3.5 10x3/uL (4.8-10.8)
[2019-01-13 12:13] LABS: PLATELET COUNT 123 10x3/uL (130-400)
[2019-01-13 12:27] LABS: ALBUMIN 3.2 g/dL (3.4-5.0); ALKALINE PHOSPHATASE 75 U/L (46-116); ALT (SGPT) 77 U/L (10-68); BILIRUBIN - TOTAL 0.28 mg/dL (0.2-1.3); CALC OSMOLALITY 289 mosm/kg (275-300); CALCIUM 8.6 mg/dL (8.5-10.1); CARBON DIOXIDE 29.9 mmol/L (21.0-32.0); CHLORIDE - SERUM 106 mmol/L (98-107); CREATININE - SERUM 0.7 mg/dL (0.6-1.3); GLUCOSE 206 mg/dL (74-106); POTASSIUM - SERUM 3.6 mmol/L (3.5-5.1); SODIUM 141 mmol/L (136-145); UREA NITROGEN 20 mg/dL (7-18); eGFR NON AFRICAN AMERICAN > 90 mL/min (90-120)
[2019-01-13 14:56] LABS: ERYTHROCYTE SEDIMENTATION RATE 15 mm/hr (0-20)
== END | disposition home or self-care (01) ==
LOC: D.LAB 11:35
PROVIDERS: ATTEND Internal Medicine Gastroenterology
DX: K51.90 Ulcerative colitis, unspecified, without complications (principal)

== ENCOUNTER → 2019-01-17 07:23 | Outpatient (CLI) | payer MEDICARE, BC ==
[2018-03-19 10:41] VITALS: BMI 41.5
[2019-01-18 10:10] LABS: HEPATITIS C ANTIBODY <0.1 S/CO RAT (0.0-0.9)
== END | disposition home or self-care (01) ==
LOC: D.US 07:23
PROVIDERS: ATTEND Internal Medicine Gastroenterology
DX: R94.5 Abnormal results of liver function studies (principal)

== ENCOUNTER → 2019-07-18 07:59 | Outpatient (CLI) | payer MEDICARE, BC ==
[2018-03-19 10:41] VITALS: BMI 41.5
[2019-07-18 08:42] LABS: ALBUMIN 3.6 g/dL (3.4-5.0); BILIRUBIN - DIRECT 0.16 mg/dL (0.00-0.30); BILIRUBIN - INDIRECT 0.3 mg/dL (0.00-1.00); BILIRUBIN - TOTAL 0.46 mg/dL (0.2-1.3); PROTEIN - SERUM 6.8 g/dL (6.4-8.2)
== END | disposition home or self-care (01) ==
LOC: D.US 07:59
PROVIDERS: ATTEND Internal Medicine Gastroenterology
DX: K76.0 Fatty (change of) liver, not elsewhere classified (principal)

== ENCOUNTER → 2019-08-26 09:19 | Outpatient (CLI) | payer MEDICARE, BC ==
[2018-03-19 10:41] VITALS: BMI 41.5
== END | disposition home or self-care (01) ==
LOC: D.HCCECHO 09:19
PROVIDERS: ATTEND Internal Medicine Cardiovascular Disease
DX: R06.02 Shortness of breath (principal)

== ENCOUNTER → 2019-08-30 09:30 | Outpatient (CLI) | payer MEDICARE, BC ==
[2018-03-19 10:41] VITALS: BMI 41.5
[2019-08-30 09:49] LABS: BASOPHILS 0.4 % (0-2); EOSINOPHILS 3.2 % (0-7); HEMATOCRIT 41.9 % (42.0-54.0); HEMOGLOBIN 13.3 g/dL (13.5-17.5); IMMATURE GRANULOCYTES 0.4 % (0-5); LYMPHOCYTES 23.5 % (15-50); MCH 27.5 pg (26.0-34.0); MCHC 31.7 g/dL (31.0-37.0); MCV 86.7 fL (80.0-100.0); MEAN PLATELET VOLUME 9.7 fL (7.4-10.4); MONOCYTES 7.8 % (2-11); NEUTROPHILS 64.7 % (40-80); PLATELET COUNT 92 10x3/uL (130-400); RBC 4.83 10x6/uL (4.20-6.10); RDW 14.4 % (11.5-14.5); WBC 2.8 10x3/uL (4.8-10.8)
[2019-08-30 10:48] LABS: PLATELET ESTIMATE DECREASED
== END | disposition home or self-care (01) ==
LOC: D.LAB 09:30
PROVIDERS: ATTEND Internal Medicine Gastroenterology
DX: K29.40 Chronic atrophic gastritis without bleeding (principal)

== ENCOUNTER → 2019-10-19 07:45 | Outpatient (CLI) | payer MEDICARE, BC ==
[2018-03-19 10:41] VITALS: BMI 41.5
[2019-10-19 08:11] LABS: BASOPHILS 0.6 % (0-2); EOSINOPHILS 3.4 % (0-7); HEMATOCRIT 44.1 % (42.0-54.0); HEMOGLOBIN 13.5 g/dL (13.5-17.5); IMMATURE GRANULOCYTES 0.3 % (0-5); LYMPHOCYTES 26.1 % (15-50); MCHC 30.6 g/dL (31.0-37.0); MCV 84.8 fL (80.0-100.0); MEAN PLATELET VOLUME 9.7 fL (7.4-10.4); MONOCYTES 8.1 % (2-11); NEUTROPHILS 61.5 % (40-80); PLATELET COUNT 107 10x3/uL (130-400); RDW 14.1 % (11.5-14.5); WBC 3.6 10x3/uL (4.8-10.8)
== END | disposition home or self-care (01) ==
LOC: D.LAB 07:45
PROVIDERS: ATTEND Internal Medicine Gastroenterology
DX: K51.90 Ulcerative colitis, unspecified, without complications (principal); K29.40 Chronic atrophic gastritis without bleeding

== ENCOUNTER → 2020-07-10 07:08 | Outpatient (CLI) | payer MEDICARE ==
[2020-01-26 04:29] VITALS: BMI 40.7
[2020-07-10 07:52] LABS: ALBUMIN 3.2 g/dL (3.4-5.0); BILIRUBIN - DIRECT 0.15 mg/dL (0.00-0.30); BILIRUBIN - INDIRECT 0.31 mg/dL (0.00-1.00); BILIRUBIN - TOTAL 0.46 mg/dL (0.2-1.3); PROTEIN - SERUM 6.5 g/dL (6.4-8.2)
== END | disposition home or self-care (01) ==
LOC: D.US 07:08
PROVIDERS: ATTEND Internal Medicine Gastroenterology
DX: K76.0 Fatty (change of) liver, not elsewhere classified (principal)

== ENCOUNTER → 2020-07-11 09:57 | Outpatient (CLI) | payer MEDICARE ==
[2020-01-26 04:29] VITALS: BMI 40.7
== END | disposition home or self-care (01) ==
LOC: D.CT 09:57
PROVIDERS: ATTEND Family Medicine
DX: G25.2 Other specified forms of tremor (principal); R26.89 Other abnormalities of gait and mobility